=== PATIENT | female | born 1955 | race Caucasian/White ===

== ENCOUNTER 2020-12-01 10:14 | Outpatient (REF) | payer MEDICARE, OTHER, SELFPAY ==
[2020-12-01 12:46] LABS: MANUAL DIFF FLAG NO
[2020-12-01 12:51] LABS: Basophils Percent Auto 0.6 % (0-2); Eosinophils Absolute Auto 0.1 X10*3/uL (0.0-0.4); Eosinophils Percent Auto 2.1 % (0-4); Hematocrit 42.5 % (37-47); Hemoglobin 13.4 g/dl (12.0-16.0); Imm Gran Abs Auto 0.02 X10*3/uL (0.00-0.03); Imm Gran Pct Auto 0.4 % (0.0-0.4); Lymphocytes Percent Auto 20.3 % (20-40); Mean Corpuscular HGB Conc 31.5 g/dl (31.0-35.0); Mean Corpuscular Hemoglobin 29.5 pg (27.0-33.0); Mean Corpuscular Volume 93.4 fL (80-98); Mean Platelet Volume 8.9 fL (9.4-12.3); Monocytes Absolute Auto 0.3 X10*3/uL (0.1-1.2); Monocytes Percent Auto 5.5 % (2-11); Neutrophils Absolute Auto 3.3 X10*3/uL (2.0-8.3); Neutrophils Percent Auto 71.1 % (45-73); Platelet Count 257 X10*3/uL (160-400); Red Blood Count 4.55 X10*6/uL (4.20-5.50); Red Cell Distribution Width 13.2 % (11.0-16.0); White Blood Count 4.7 X10*3/uL (4.8-10.8)
[2020-12-01 12:59] LABS: Estimated Average Glucose 120 mg/dL; Hemoglobin A1c % 5.8 %
[2020-12-01 13:15] LABS: Alanine Aminotransferase 20 U/L (0-31); Albumin Level 4.5 g/dL (3.5-5.0); Alkaline Phosphatase 85 U/L (39-117); Anion Gap 13 (12-20); Aspartate Amino Transferase 25 U/L (5-31); Bilirubin Total 0.6 mg/dL (0.0-1.0); Blood Urea Nitrogen 14 mg/dL (9-16); C Reactive Protein 0.22 mg/dL (< or = 0.50); Calcium 9.4 mg/dL (8.4-10.2); Carbon Dioxide 27 mmol/L (22-29); Chloride 110 mmol/L (96-108); Cholesterol 175 mg/dL; Estimated Glomerular Filt Rate > 60; Glucose Fasting 87 mg/dL (60-99); HDL Cholesterol 51 mg/dL; LDL Cholesterol Calculated 102 mg/dl; Potassium 4.1 mmol/L (3.3-5.1); Sodium 146 mmol/L (135-145); Total Protein 6.6 g/dL (6.5-8.0); Triglycerides 111 mg/dL
[2020-12-01 13:32] LABS: Erythrocyte Sedimentation Rate 8 MM/HR (0-20)
[2020-12-01 13:36] LABS: Free T4 (Free Thyroxine) 0.89 ng/dL (0.71-1.85); Thyroid Stimulating Hormone 0.76 uIU/mL (0.32-4.0)
[2020-12-01 14:03] LABS: Folate 9.7 ng/mL (> or = 4.0); Vitamin B12 168 pg/mL (200-900)
[2020-12-02 21:12] LABS: Lyme Abs Screen <0.90 index
== END 2020-12-01 10:15 | disposition home or self-care (01) ==
LOC: HO.MANLDS 10:14
PROVIDERS: Visit Provider Physician Assistant
DX: E78.00 Pure hypercholesterolemia, unspecified (principal); R41.3 Other amnesia
CPT/HCPCS: 36415; 80053; 80061; 82607; 82746; 83036; 84439; 84443; 85025; 85652; 86140; 86617; 86618

== ENCOUNTER 2021-08-04 12:39 | Outpatient (REF) | payer MEDICARE, OTHER, SELFPAY ==
--- NOTE | ~2021-08-04 | US_ITS ---
EXAMINATION: US LOWER EXTREMITY VENOUS (REFLUX EXAM), BILATERAL CLINICAL INDICATION: This is a 65-year-old female with venous insufficiency and varicose veins. COMPARISON: None. TECHNIQUE: Color flow triplex imaging and compression Doppler was performed to evaluate both the deep and the superficial systems bilaterally. To evaluate the superficial system, the examination was performed in the upright position. Color-flow Doppler ultrasound and compression ultrasound were utilized. In addition, maneuvers were utilized to demonstrate reflux. FINDINGS: 1. DEEP VENOUS ULTRASOUND OF THE RIGHT LOWER EXTREMITY: Common Femoral Vein: Compressible, normal respiratory variation and augmented flow. Femoral vein: Compressible, normal color flow and augmentation. Popliteal Vein: Compressible, normal augmentation. Deep Reflux: There is no evidence of reflux in the deep system in either the common femoral vein or the popliteal vein. There is no evidence of a Shaw's cyst. 2. SUPERFICIAL ULTRASOUND WITH DOPPLER OF RIGHT LOWER EXTREMITY: GREAT SAPHENOUS VEIN: Saphenofemoral Junction: 0.7 cm. The reflux time is 1612 ms. Mid Thigh: 0.5 cm. The reflux time is 3272 ms. Above Knee: 0.4 cm. The reflux time is 3184 ms. Below Knee: 0.3 cm. The reflux time is 3316 ms. Mid Calf: 0.4 cm. There is no reflux. Ankle: 0.4 cm. The reflux time is 3356 ms. GSV REFLUX: No evidence of reflux. DUPLICATED GREAT SAPHENOUS VEIN: None. SMALL SAPHENOUS VEIN: Proximal: 0.4 cm Distal: 0.4 cm SSV REFLUX: No evidence of reflux. VEIN OF GIACOMINI: None Imaged. 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 There is a 0.1 cm proximal calf gas plant worker without reflux. VARICOSITIES: There is a 0.3 cm proximal thigh varicose veins without reflux. There are 0.7 cm distal thigh varicose veins with greater than 3 seconds of reflux. This extends to the knee measures 0.3 cm at the knee. 3. DEEP VENOUS ULTRASOUND OF THE LEFT LOWER EXTREMITY: Common Femoral Vein: Compressible, normal respiratory variation and augmented flow. Femoral Vein: Compressible, normal color flow and augmentation. Popliteal Vein: Compressible, normal augmentation. Deep Reflux: There is no evidence of reflux in the deep system in either the common femoral vein or the popliteal vein. There is no evidence of a Shaw's cyst. 4. SUPERFICIAL ULTRASOUND WITH DOPPLER OF LEFT LOWER EXTREMITY: GREAT SAPHENOUS VEIN: Saphenofemoral Junction: 0.9 cm The great saphenous vein below this level has been removed secondary to previous surgery. GSV REFLUX: No evidence of reflux. DUPLICATED GREAT SAPHENOUS VEIN: There is a 0.3 cm duplicated left lateral great saphenous vein without reflux. SMALL SAPHENOUS VEIN: Proximal: 0.3 cm. There is no reflux. Distal: 0.3 cm. The reflux time is 3192 ms. SSV REFLUX: There is distal calf reflux. VEIN OF GIACOMINI: None Imaged. PERFORATORS: None Imaged VARICOSITIES: There are 0.4 cm proximal calf varicose veins with greater than 3 seconds of reflux. US/US venous duplex LE BI IMPRESSION: 1. There is a patent right great saphenous vein with reflux at the saphenofemoral junction. 2. There is a patent right small saphenous vein without reflux. 3. There are varicose veins as described with greater than 3 seconds of reflux. 4. The patient status post stripping of the left great saphenous vein and there is no reflux. 5. There is a patent left small saphenous vein with distal calf reflux greater than 3 seconds. 6. There are 0.4 cm proximal calf varicose veins with greater than 3 seconds of reflux.
== END 2021-08-04 12:40 | disposition home or self-care (01) ==
LOC: HO.US 12:39
PROVIDERS: Visit Provider Physician Assistant
DX: I83.11 Varicose veins of right lower extremity with inflammation (principal)
CPT/HCPCS: 93970

== ENCOUNTER → 2021-10-05 09:19 | Outpatient (BNVA) | payer MEDICARE, OTHER, SELFPAY | PROVIDERS: PCP Internal Medicine; Visit Provider Surgery Vascular Surgery | DX: I83.11 Varicose veins of right lower extremity with inflammation (principal) | CPT/HCPCS: 99202 ==

== ENCOUNTER 2021-11-02 07:37 | Outpatient (REF) | payer MEDICARE, OTHER, SELFPAY ==
--- NOTE | ~2021-11-02 | XR_ITS ---
EXAMINATION: XR HIP, RIGHT CLINICAL INFORMATION: Pain. COMPARISON: None TECHNIQUE: AP and frog-leg lateral views of the right hip. FINDINGS: Bony alignment and mineralization are normal. The right acetabular joint space is well-maintained. There is a small peripheral osteophyte of the right acetabular roof. The right femoral head appears smooth. No fracture or dislocation is seen. The soft tissue planes are unremarkable. XR/XR hip RT min 2V IMPRESSION: There is very mild osteoarthritic change of the right hip. No fracture or dislocation is seen.
--- NOTE | ~2021-11-02 | XR_ITS ---
EXAMINATION: XR LUMBOSACRAL SPINE CLINICAL INFORMATION: Radiculopathy symptoms. COMPARISON: Radiographs dated 10/26/2007. TECHNIQUE: AP and lateral views of the lumbar spine and lateral view of the lumbosacral junction. FINDINGS: There is bony demineralization. Vertebral body heights and alignment are normal. There is mild to moderate disc space narrowing at L3-L4 and L4-L5. There is moderate disc space narrowing at L5-S1. No acute fracture or spondylolisthesis is seen. There is multi-level lumbar spondylosis. The posterior elements are intact. There are aortoiliac atherosclerotic calcifications. XR/XR lumbar spine 2-3V IMPRESSION: 1. There is moderate degenerative disc disease at L5-S1, and mild to moderate degenerative disc disease seen at L3-L4 and L4-L5. 2. No acute fracture or spondylolisthesis is seen. 3. There is multi-level lumbar spondylosis.
== END 2021-11-02 07:38 | disposition home or self-care (01) ==
LOC: HO.XRAY 07:37
PROVIDERS: PCP Internal Medicine; Visit Provider Physician Assistant
DX: M25.551 Pain in right hip (principal); M54.59 Other low back pain
CPT/HCPCS: 72100; 73502

== ENCOUNTER → 2022-01-04 08:45 | Outpatient (BNVA) | payer MEDICARE, OTHER, SELFPAY | PROVIDERS: PCP Internal Medicine; Visit Provider Surgery Vascular Surgery | DX: I83.11 Varicose veins of right lower extremity with inflammation (principal) | CPT/HCPCS: 99212 ==

== ENCOUNTER 2022-07-25 10:11 | Outpatient (REF) | payer MEDICARE, OTHER, SELFPAY ==
[2022-07-25 14:50] LABS: Cholesterol 161 mg/dL; HDL Cholesterol 54 mg/dL; LDL Cholesterol Calculated 92 mg/dl; Triglycerides 76 mg/dL
== END 2022-07-25 10:12 | disposition home or self-care (01) ==
LOC: HO.MANLDS 10:11
PROVIDERS: Visit Provider Physician Assistant
DX: E78.5 Hyperlipidemia, unspecified (principal)
CPT/HCPCS: 36415; 80061

== ENCOUNTER 2022-09-30 08:20 | Outpatient (REF) | payer MEDICARE, OTHER, SELFPAY ==
--- NOTE | ~2022-09-30 | MR_ITS ---
EXAMINATION: MR BRAIN WITHOUT AND WITH CONTRAST CLINICAL INFORMATION: Acoustic neuroma. COMPARISON: None available. TECHNIQUE: Multiplanar, multisequence imaging of the brain was performed before and after the intravenous administration of 6 mL of Gadavist. FINDINGS: The inner ear structures including the cochlea, vestibules, and semicircular canals exhibit preserved CSF signal intensity with no pathologic enhancement. The vestibular aqueducts are not enlarged. Cranial nerves VII and VIII complexes are normal in morphology. No enhancing cerebellopontine angle/retrocochlear lesion. There is no intracranial mass or abnormal intracranial enhancement. There is no acute infarction. There is no intracranial hemorrhage or extra axial collection. The ventricles, sulci, and basilar cisterns are normal in size and configuration. Mild scattered foci of T2/FLAIR hyperintensity are seen within the bilateral cerebral white matter. The extracranial structures appear normal. MR/MR head/brain wo/w con IMPRESSION: 1. No vestibular schwannoma or retrocochlear lesion. 2. No mass lesion, acute infarction, or abnormal intracranial enhancement.
== END 2022-09-30 08:21 | disposition home or self-care (01) ==
LOC: HO.MRI 08:20
PROVIDERS: PCP Physician Assistant; Visit Provider Otolaryngology
DX: D33.3 Benign neoplasm of cranial nerves (principal)
CPT/HCPCS: 70553; A9585

== ENCOUNTER 2023-12-05 07:00 | Outpatient (REF) | payer MEDICARE, OTHER, SELFPAY ==
[2023-12-05 07:21] LABS: MANUAL DIFF FLAG NO
[2023-12-05 08:15] LABS: Eosinophils Absolute Auto 0.1 X10*3/uL (0.0-0.4); Eosinophils Percent Auto 3.7 % (0-4); Hematocrit 41.5 % (37.0-47.0); Hemoglobin 13.4 g/dl (12.0-16.0); Imm Gran Abs Auto 0.01 X10*3/uL (0.00-0.03); Imm Gran Pct Auto 0.3 % (0.0-0.4); Lymphocytes Absolute Auto 1.2 X10*3/uL (1.2-4.9); Lymphocytes Percent Auto 32.2 % (20-40); Mean Corpuscular HGB Conc 32.3 g/dl (31.0-35.0); Mean Corpuscular Hemoglobin 30.7 pg (27.0-33.0); Mean Corpuscular Volume 95.2 fL (80.0-98.0); Mean Platelet Volume 8.7 fL (9.4-12.3); Monocytes Absolute Auto 0.3 X10*3/uL (0.1-1.2); Monocytes Percent Auto 7.9 % (2-11); Neutrophils Absolute Auto 2.1 x10*3/uL (2.0-8.3); Neutrophils Percent Auto 54.9 % (45-73); Platelet Count 219 X10*3/uL (160-400); Red Blood Count 4.36 X10*6/uL (4.20-5.50); Red Cell Distribution Width 12.8 % (11.0-16.0); White Blood Count 3.8 X10*3/uL (4.8-10.8)
[2023-12-05 08:50] LABS: Erythrocyte Sedimentation Rate 8 MM/HR (0-20)
[2023-12-05 09:07] LABS: Rheumatoid Factor < 13.0 IU/mL (<15.0)
[2023-12-05 09:22] LABS: C Reactive Protein 0.19 mg/dL (< or = 0.50); Iron 78 mcg/dL (30-160); Percent Iron Saturation 26 % (15-50); Total Iron Binding Capacity 298 mcg/dL (228-428); Unsaturated Iron Binding 220 ug/dL
[2023-12-05 09:24] LABS: Free T4 (Free Thyroxine) 0.79 ng/dL (0.71-1.85); Thyroid Stimulating Hormone 1.32 uIU/mL (0.32-4.0)
[2023-12-05 09:33] LABS: Folate 8.9 ng/mL (> or = 4.0); Vitamin B12 190 pg/mL (200-900)
[2023-12-07 13:59] LABS: Anti Nuclear Antibody Screen NEGATIVE (NEGATIVE)
== END 2023-12-05 07:01 | disposition home or self-care (01) ==
LOC: HO.LAB 07:00
PROVIDERS: PCP Internal Medicine; Visit Provider Physician Assistant
DX: R41.3 Other amnesia (principal); I73.00 Raynaud's syndrome without gangrene
CPT/HCPCS: 36415; 82607; 82746; 83540; 84439; 84443; 85025; 85652; 86038; 86140; 86431

== ENCOUNTER 2024-01-05 08:42 | Outpatient (REF) | payer MEDICARE, OTHER, SELFPAY ==
--- NOTE | ~2024-01-05 | MR_ITS ---
MRI OF THE BRAIN WITHOUT IV CONTRAST INDICATION: Memory loss with question vascular dementia. COMPARISON: Brain MRI September 30, 2022. TECHNIQUE: Multiplanar multisequence MR imaging of the brain was obtained without IV contrast. FINDINGS: There is no hydrocephalus, extra-axial surface collection, or herniation. There is global cerebral volume loss and moderate chronic microangiopathy. 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 The major flow voids at the skull base are preserved. There is no acute infarct on diffusion-weighted imaging. There is no intracranial hemorrhage on the gradient recalled echo acquisition. The midline structures are normal. The cerebellar tonsils are normally positioned. The cerebellum and brainstem are normal. The craniocervical junction is normal. Osseous marrow signal intensity is homogenous. The visualized soft tissues are unremarkable. MR/MR head/brain wo con IMPRESSION: * No acute intracranial findings. * There is global cerebral volume loss and moderate chronic microangiopathy. 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 Electronically signed by: Bartolo Nielsen MD 02/07/2024 04:09 PM EDT
== END 2024-01-05 08:43 | disposition home or self-care (01) ==
LOC: HO.MRI 08:42
PROVIDERS: PCP Internal Medicine; Visit Provider Physician Assistant
DX: R41.3 Other amnesia (principal)
CPT/HCPCS: 70551

== ENCOUNTER 2025-05-01 07:16 | Outpatient (REF) | payer MEDICARE, OTHER, SELFPAY ==
--- NOTE | ~2025-05-01 | XR_ITS ---
EXAMINATION: XR BILATERAL HIPS WITH AP PELVIS CLINICAL INFORMATION: PAIN COMPARISON: X-ray 11/02/2021 TECHNIQUE: AP view of the pelvis and 2 views of each hip were obtained. FINDINGS: Right hip: No visible acute fracture dislocation or suspicious bony lesion. Hip joint space is maintained. Mild acetabular roof sclerosis and lateral osteophyte Left hip: No visible acute fracture, dislocation or suspicious bony lesion. Lateral acetabular cysts and acetabular roof sclerosis. No visible.. SI joints and symphysis pubis intact. No acute pelvic fractures identified. Spondylosis in the visualized lower lumbar spine. Surgical projects over the left ischium. XR/XR hip BI w [id number] IMPRESSION: Mild bilateral hip osteoarthritis. Electronically signed by: Richard Beal MD 05/01/2025 03:00 PM [facility]
--- OUTSIDE RECORDS SUMMARY | 2025-05-01 07:19 | XMS_ITS | Continuity of Care Document ---
Author Organization [facility], [facility] Address [address] [place] [address] [place] [address] Assessment No assessment recorded. Plan of Treatment Reminders Order Date Submit Date Provider Last Modified By Organization Details Last Modified Time Details Appointments None recorded. Lab None recorded. Referral None recorded. Procedures None recorded. Surgeries None recorded. Imaging XR, hip + pelvis, bilateral, 2 view - bilateral hip; ? L hip fracture 2024 025 [facility] Central Scheduling, [address] [place] [address], [address], 5 15:35:46 Medication Orders None recorded. Patient TargetsNo targets recorded. Patient InstructionsNo instructions recorded. Reason for Referral None Reported. 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 2017 Not Available [facility] 1 10:24:15 Psoriasis 1670095 Active 2017 Not Available [facility] 1 10:24:15 Vertigo 625110045 Active 2017 Not Available [facility] 1 10:24:15 Gastric reflux 397658431 Active 2017 Not Available [facility] 1 10:24:15 Periphera l venous insuffici ency 13014781 Active 2021 KARISHMA GAGE [address], [place], [address], [facility] 2 10:03:11 Pain of right lower leg 489119653424 108 Active 2021 KARISHMA GAGE [address] [place], [address], [facility] 2 16:39:32 Venous insuffici ency of lower limb 624944480 Active 2021 KARISHMA GAGE [address] [place], [address], [facility] 2 16:39:39 Pain of right hip joint 403023104652 102 Active 2021 KARISHMA GAGE [address] [place], [address], [facility] 2 16:40:33 Low back pain 218851761 Active 2021 KARISHMA GAGE [address] [place] [address], [address], [facility] 2 10:44:21 Otalgia of right ear 8272593875 Active 2021 KARISHMA GAGE [address] [place] [address], [address], [facility] 2 10:11:09 Skin lesion 51681467 Active 2021 KARISHMA GAGE [address] [place] [address], [address], [facility] 2 10:15:03 Constipat ion 88496358 Active 2021 KARISHMA GAGE [address] [place], [address], [facility] 2 10:19:17 Hyperlipi demia 19864186 Active 2022 KARISHMA GAGE [address] [place] [address], [address], [facility] 3 11:58:15 Eczema 33162718 Active 2022 KARISHMA GAGE [address] [place], [address], [facility] 3 14:26:11 Seborrhei c dermatiti s of scalp 838712635 Active 2022 KARISHMA GAGE [address] [place] [address], [address], [facility] 3 09:10:14 Memory impairmen t 603741903 Active 2023 KARISHMA GAGE [address] [place] [address], [address], [facility] 4 13:45:49 Raynaud's phenomeno n 311093161 Active 2023 KARISHMA GAGE [address] [place] [address], [address], [facility] 4 13:46:29 Bilateral carpal tunnel syndrome 585425208746 32310 Active 2023 KARISHMA GAGE [address] [place] [address], [address], [facility] 5 10:06:24 Osteoarth ritis of joint of hand 26533291 Active 2023 KARISHMA GAGE [address] [place] [address], [address], [facility] 4 10:51:35 Varicose veins of bilateral lower limbs 026085081435 09313 Active 2023 KARISHMA GAGE [address] [place] [address], [address], [facility] 4 10:51:49 Bilateral spider veins of lower limbs 550970737823 75598 Active 2023 KARISHMA GAGE [address] [place] [address], [address], [facility] 4 10:51:58 Osteoarth ritis of joint of hand 64142850 Active 2023 KARISHMA GAGE [address] [place] [address], [address], [facility] 4 10:52:10 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 KARISHMA GAGE [address] [place] [address], [address], [facility] 4 10:05:32 Seborrhei c keratosis 935225778 Active 2024 KARISHMA GAGE [address] [place] [address], [address], [facility] 5 09:33:15 Vascular dementia 627273991 Active 2024 KARISHMA GAGE [address] [place] [address], [address], [facility] 5 10:00:38 Bilateral inflammat ion of hands Active 2024 KARISHMA GAGE [address] [place] [address], [address], [facility] 5 10:06:54 Ganglion of hand 429871124 Active 2024 KARISHMA GAGE [address] [place] [address], [address], [facility] 5 10:07:03 Thromboph lebitis of superfici al vein of right lower limb 862063376458 29488 Active 2024 KARISHMA GAGE [address] [place] [address], [address], [facility] 5 14:26:21 Pain of hip region 45358784 Active 2024 KARISHMA GAGE [address] [place] [address], [address], [facility] 5 13:49:55 Problem Notes None recorded. Procedures Surgical History Date Name Laterality Status Provider Name and Address Organization Details Recorded Time 07/28/19 22 Cerumen Removal completed KARISHMA GAGE [address] [place] [address], [address], [facility] 07/28/2021 09:39:06 06/19/19 08 Thyroid Surgery completed Luann Silver NP, [address] [place], [address], [facility] 03/06/2018 13:59:10 Partial Hysterectomy completed Luann Silver NP, [address] [place], [address], [facility] 03/06/2018 13:58:37 Imaging Results None recorded. Procedure Notes None recorded. Medical Equipment None Reported. Allergies No known drug allergies Medications Name Sig Start Date Stop Date Status Note LastModified by Organization Details LastModified Time Prescript ion - Prior Authoriza tion Request 12/01 completed Approval Diclofen ac Sodium Gel Not Available Not Available Not Available atorvasta tin 40 mg tablet TAKE 1 TABLET BY MOUTH EVERY DAY 11/19 completed Not Available Not Available Not Available benzonata te 200 mg capsule Take 1 capsule 3 times a day by oral route. 03/07 completed Not Available Not Available Not Available ranitidin e 300 mg tablet TAKE 1 TABLET BY MOUTH TWICE A DAY 12/29 completed Not Available Not Available Not Available meloxicam 15 mg tablet TAKE 1 TABLET BY MOUTH EVERY DAY NEEDED FOR 14 DAYS 04/30 completed Not Available Not Available Not Available prednison e 20 mg tablet 3 tabs X 3 days, 2 tabs X 3 days, 1 tab X 3 days 10/08 completed Not Available Not Available Not Available clobetaso l 0.05 % topical cream APPLY THIN COAT TO AFFECTED AREA TWICE A DAY 07/16 completed Not Available Not Available Not Available aspirin 81 mg tablet,de layed release TAKE 1 TABLET BY MOUTH EVERY DAY DIRECTED active Not Available Not Available No t Available meclizine 25 mg tablet TAKE 1 TABLET BY MOUTH THREE TIMES A DAY NEEDED FOR 30 DAYS 04/30 completed Not Available Not Available Not Available cephalexi n 500 mg capsule Take 1 capsule every 8 hours by oral route for 10 days. 04/25 completed Not Available Not Available Not Available methylpre dnisolone 4 mg tablets in a dose pack TAKE 6 TABLETS ON DAY 1 DIRECTED ON PACKAGE AND DECREASE BY 1 TAB EACH DAY FOR A TOTAL OF 6 DAYS 04/30 completed Not Available Not Available Not Available clobetaso l 0.05 % scalp solution APPLY TO THE AFFECTED SCALP AREA BY TOPICAL ROUTE 2 TIMES PER DAY IN THE MORNING AND EVENING active Not Available Not Available No t Available neomycin- polymyxin -hydrocor t 3.5 mg-10,000 unit/mL-1 % ear drops,chichi p INSTILL 4 DROPS INTO AFFECTED EAR(S) 3 TIMES A DAY 08/20 completed Not Available Not Available Not Available cyclobenz aprine 5 mg tablet Take 1 tablet twice a day by oral route as needed. 10/08 completed Not Available Not Available Not Available Zantac 03/07 completed Not Available Not Available Not Available 12 Hour Decongest ant ER 120 mg tablet,ex tended release TAKE 1 TABLET BY MOUTH EVERY 12 HOURS FOR 14 DAYS 09/13 completed Not Available Not Available Not Available diclofena c 1 % topical gel apply 2 g 1% gel qid prn 2024 active Not Available Not Available Not Avai lable Vitals Date Recorded Body height Body mass index (BMI) Body weight Oxygen saturation Oxygen saturation in Arterial blood by Pulse oximetry Heart rate Systolic And Diastolic Provider Name and Address Organization Details Last Updated DateTime 5 170.18 cm 25.7 kg/m2 04230.1 5 g 96 % 96 % 70 /min 134/70 mm[Hg] [facility] 5 13:42:13 Social History Question Answer Notes LastModified by Organizat ion Details LastModified Time Tobacco Smoking Status Former Smoker Not Available [facility] 04/21/2020 03:36:24 What Was The Date Of Your Most Recent Tobacco Screening? 04/30/2025 [email or web address] Information not available 04/30/2025 Sex: Unknown Functional Status Question Answer Note LastModified by Organization D etails LastModified Time Do you or have you ever used any other forms of tobacco or nicotine? No [email or web address] Information not available 10/27/2021 Mental Status None recorded. Family History Nothing Reported. Medical History No medical history recorded. Gynecological HistoryNo gynecological history recorded. Obstetrics History GPAL:G 0 P 0 0 0 0 Immunizations Vaccine Type Date Status Note Provider Nam e and Address Organization Details Recorded Time COVID-19, mRNA, LNP-S, PF, 30 mcg/0.3 mL dose 1 completed KARISHMA GAGE [address] [place], [address], [facility] 06/03/2021 18:21:34 Influenza, split virus, quadrivalent, preservative 1 completed KARISHMA GAGE [address] [place], [address], [facility] 07/28/2021 09:13:49 Influenza, split virus, quadrivalent, preservative 9 completed Not Available [facility] 07/06/2019 02:46:30 influenza, unspecified formulation 4 [facility] 08:52:29 Influenza, split virus, quadrivalent, preservative 8 completed Not Available [facility] 07/06/2019 02:46:31 COVID-19, mRNA, LNP-S, PF, 30 mcg/0.3 mL dose 1 completed Dee aldana [facility] 11/24/2020 09:40:46 COVID-19, mRNA, LNP-S, PF, 30 mcg/0.3 mL dose 1 completed Dee aldana [facility] 11/24/2020 09:40:54 Past Encounters Encounter ID Performer Location Encounter Start Date Encounter Closed Date Diagnosis/Indication Diagnosis SNOMED-CT Code Diagnosis ICD10 Code Diagnosis IMO Codes Diagnosis Note [id number] Henrique Donohue [facility] Internal [facility] [address] [address] 04/08/2025 14:06:01 04/09/2025 09:39:24 Thrombophlebitis of superficial vein of right lower limb 4883635324 1208947 I80.01 [id number] Henrique Donohue [facility] [address] [facility] [facility] [address] [address] 04/30/2025 13:29:00 04/30/2025 15:35:46 Depression screening 744968183 Z13.31 SCREENING NEGATIVE Pain of hip region 73726 002 M25.552 901031 Ganglion of hand 5006468 07 M67.449 0465648154 L handresolv ed Thrombophl ebitis of superficial vein of right lower limb 6031606439 2680058 I80.01 02588322 Health Concerns Section Related Observation LastModified by Organization Detai ls LastModified Time None Recorded Concern Status LastModified by Organization Details LastModified Time None Recorded Payers Encounter Date Sequence Insurance Name Policy Number Policy Nur Covered Member ID Nur Member ID Guarantor Name 04/30/2025 2 [facility] [id number] 01 Alyssa Stacy [id number] Alyssa Stacy 04/30/2025 1 [place] Alyssa Stacy [id number] Alyssa Stacy Notes Date Note Type Note Provider Name a nd Address Organization Details Recorded Time 5 text/html ROS as noted in the HPI c/o L hip pain the patient reports she was trying to make her bed, tripped and fell on her hip (L)no head strikethe patient reports that she just gets a lot of pain in that area and has been giving out on herthis happened about two weeks agohas had three to falls since patient has memory problems which we are aware ofso she thinks she fell out three times, could be more, but at least three, all because her L hip gave out no head injury sig pain with ext rotation and notable limp and weakness on L compared to R recommend XR which pt was hesitant to do, but she agreesdiscussed possibility of hip fx KARISHMA GAGE [address], [place], [address], [place] [facility] 04/30/2025 15:22:11 OBGyn Episode No OBEpisode recorded.
--- OUTSIDE RECORDS SUMMARY | 2025-05-01 07:19 | XMS_ITS | Patient Health Record ---
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 Role Phone Blaire Bowden Primary Care Provider Lobito love Tala Jaine Unavailable [phone] Allergies No Known Allergies Reason For Referral No Information Medications Medication SIG (Take, Route, Frequency, Duration) Notes Start Date End Date Status Aspir-81 PRN Active Atorvastatin Calcium 40 MG 1 tablet Orally Once a day; Duration: 30 day(s) Not-Taking Nitro-Bid 2 % as directed Transder mal BID; Duration: 14 days 07/15/2013 Not-Takin g Meclizine HCl 25mg N ot-Taking Social History Tobacco Use: Social History Observation Description Date Details (start date - stop date) Never Smoker NA - NA Tobacco use other than smoking: Question Answer Notes Are you an other tobacco user? No Tobacco Control (Standard) Question Answer Notes Tobacco use: Nonsmoker Additional Findings: Tobacco non-user Current no nsmoker AUDIT-C (Standard) Question Answer Notes Did you have a drink containing alcohol in the p ast year? No Points 0 Interpretation Negative Problems Problem Type SNOMED Code ICD Code Onset Dates Problem Status W/U Status Risk Notes Problem Plantar wart (69664926) Plantar wart (B07.0) Active confirmed Vital Signs Blood pressure diastolic 60 mm Hg 12/30/2024 Height 5ft 8in in 12/30/2024 Blood pressure systolic 115 mm Hg 12/30/2024 Weight 147 lbs 12/30/2024 BMI 22.35 kg/m2 12/30/2024 Procedures Procedure Date Ordered Date Performed Result Body Sit e 55518-Bysz Destruction, 1-14 12/30/2024 N/A Encounters Encounter Location Date Provider Diagnosis [facility] [place] [address] [place] [address] 12/30/2024 Montserrat Black Right foot pain M79.671 and Plantar wart B07.0 Assessments Encounter Date Diagnosis (ICD Code) Assessment Notes Treatment Notes Treatment Clinical Notes Section Notes 12/30/2024 Right foot pain (ICD-10 - M79.671) 12/30/2024 Plantar wart (ICD-10 - B07.0) Plan Of Treatment Pending Test Test Name Order Date X ray : Foot, left 3V 08/02/2012 X ray : Foot, right 3V 08/02/2012 [id number] Destruction, 1-12/30/2024 Insurance Providers Payer Name Payer Address Payer Phone Subscriber Number Group Number Insured Name Patient Relationship to Insured Coverage Start Date Coverage End Date Medicare [employer] [address] [place] [address] [id number] Alyssa Stacy Self - patient is the insured [facility] [address] [place] [address] [phone] [id number] Alyssa Stacy Self - patient is the insured Medical (General) History Medical History History ICD Code psoriasis/eczema thyroid disorder Arthritis Valves in legs dont work- pt wears compr ession stockings all the time Other hammer toe(s) (acquired), left esme t M20.42 Surgical History Surgery Date(Month/Year) thyroidectomy
--- OUTSIDE RECORDS SUMMARY | 2025-05-01 07:20 | XMS_ITS | Clinical Summary ---
Author Organization [facility] Address [address] [place] [address] Phone Care Team Providers Care Communications Specialist Name Role Phone Blaire Odonnell Primary Care Provider Social History Tobacco Use Types Packs/Day Years Used Date Smoking Tobacco: Never Assessed Education Answer Date Recorded Are you interested in more education? Not on shahid e 10/15/2022 Are you concerned about learning? Not on file 10/15/2022 No 10/15/2022 No 10/15/2022 Digital Access Answer Date Recorded No 11/15/2022 No 11/15/2022 Reliable internet access at home? Not on file 11/15/2022 Device with a working camera? Not on file Comments Unknown Sex and Gender Information Value Date Recorded Sex Assigned at Not on file Legal Sex Unknown 07/28/2021 9:55 AM EST Gender Identity Not on file Sexual Orientation Not on file Plan of Treatment Not on file Medical Devices Not on file Insurance MEDICARE PART A & B [facility] MEDICARE SUPPLEMENT Member Subscriber Plan / Payer (Ef fective 2018-Present) Name:Alyssa Stacy Relation to Subscriber:Self Name:Alyssa Stacy Payer ID:Not on file Type:Indemnity Address: [place] [id number] MEDICARE PART A & B MEDICARE SUPPLEMENT MEDICARE PART A & B MEDICARE SUPPLEMENT MEDICARE PART A & B MEDICARE SUPPLEMENT MEDICARE PART A & B Member Subscriber Plan / Payer (Ef fective 2018-) Name:Alyssa Stacy Member ID:[id number] Relation to Subscriber:Self Name:Alyssa Stacy Subscriber ID:[id number] Payer ID:[id number] Group ID:Not on file Type:Medicare Address: [employer] [address] MEDICARE SUPPLEMENT MEDICARE PART A & B MEDICARE SUPPLEMENT MEDICARE PART A & B Member Subscriber Plan / Payer (Ef fective 2018-Present) Name:Alyssa Stacy Member ID:[id number] Relation to Subscriber:Self Name:Alyssa Stacy Subscriber ID:[id number] Payer ID:[id number] Group ID:Not on file Type:Medicare Address: [employer] [address] MEDICARE SUPPLEMENT MEDICARE PART A & B MEDICARE SUPPLEMENT MEDICARE PART A & B [facility] MEDICARE SUPPLEMENT Member Subscriber Plan / Payer (Ef fective 2018-Present) Name:Alyssa Stacy Relation to Subscriber:Self Name:Alyssa Stacy Payer ID:Not on file Type:Indemnity Address: [place] [phone] Care Teams Communications Specialist Relationship Specialty Start Date End Date Blaire Odonnell PA [address] [facility] [place] [address] PCP - General 07/28/21 Additional Source Comments The information contained in this document represents components of the legal health record. It is not the complete legal health record.[facility]
--- OUTSIDE RECORDS SUMMARY | 2025-05-01 07:20 | XMS_ITS | Data Portability ---
Author Organization [facility], Telehealth Patient Home Address [address] [place] [address] Assessment Encounter Date Assessment Date Assessment LastModified by Organization Details LastModified Time 02/13/2024 02/13/2024 Patient agreed and verbally consents to this audio and video Telehealth appt via a secure platform [email or web address] Not available 02/13/2024 10:06:18 Plan of Treatment Reminders Order Date Submit Date Provider Last Modified By Organization Details Last Modified Time Details Appointments None recorded. Lab None recorded. Referral None recorded. Procedures None recorded. Surgeries None recorded. Imaging XR, hip + pelvis, bilateral, 2 view - bilateral hip; ? L hip fracture 2024 025 [email or web address] [facility] Central Scheduling, [address] [place], [address], 15:35:46 Medication Orders cephalexin 500 mg capsule 2024 025 [facility]acy #[id number], [address] [place], [address], 5 05:01:12 Medrol ([place]ryn) 4 mg tablets in a dose pack 2024 025 [facility] #[id number], [address] [place], [address], 5 13:55:47 aspirin 81 mg tablet,deon yed release 2024 025 [facility] #[id number], [address] [place], [address], 5 14:29:23 meclizine 25 mg tablet 2024 025 [id number] [address] [place], [address], 5 13:55:51 clobetasol 0.05 % scalp solution 2024 025 [id number] [address] [place], [address], 5 09:36:01 diclofenac 1 % topical gel 2024 025 [id number] [address] [place], [address], 5 09:32:13 meloxicam 15 mg tablet 2024 025 [id number] [address] [place], [address], 5 13:39:38 Patient TargetsNo targets recorded. Patient InstructionsNo instructions recorded. Reason for Referral None Reported. Results Created Date Observation Date Name Description Value Unit Range Abnormal Flag Note LastModifiedBy Organization Detail LastModifiedTime 02/07/20 24 01/05/2024 MRI, brain , w/o contr ast No observ ation record ed. [email or web address] [facility] (Medical Records) [address] [place], [address], 02/09/2024 09:04:20 Result Notes None recorded. Problems Name Problem SNOMED Code Status Onset Date Resolution Date Notes Provider Name and Address Organization Details Recorded Time Hyperchol esterolem ia 60220205 Active 2017 Not Available [facility] 10:24:15 Obsessive -compulsi ve disorder 789661393 Active 2017 Not Available [facility] 10:24:15 Psoriasis 0611436 Active 2017 Not Available [facility] 12/16/202 1 10:24:15 Vertigo 107575144 Active 2017 Not Available [facility] 1 10:24:15 Gastric reflux 280250742 Active 2017 Not Available [facility] 1 10:24:15 Periphera l venous insuffici ency 00817169 Active 2021 KARISHMA GAGE [address] [place], [address], [facility] 2 10:03:11 Pain of right lower leg 421105055379 108 Active 2021 KARISHMA GAGE [address] [place], [address], [facility] 2 16:39:32 Venous insuffici ency of lower limb 402772148 Active 2021 KARISHMA GAGE [address] [place], [address], [facility] 2 16:39:39 Pain of right hip joint 034929358532 102 Active 2021 KARISHMA GAGE [address] [place], [address], [facility] 2 16:40:33 Low back pain 377120243 Active 2021 KARISHMA GAGE [address] [place], [address], [facility] 2 10:44:21 Otalgia of right ear 9400175976 Active 2021 KARISHMA GAGE [address] [place], [address], [facility] 2 10:11:09 Skin lesion 57203435 Active 2021 KARISHMA GAGE [address] [place], [address], [facility] 2 10:15:03 Constipat ion 53421545 Active 2021 KARISHMA GAGE [address] [place] [address], [address], [facility] 2 10:19:17 Hyperlipi demia 24510487 Active 2022 KARISHMA GAGE [address] [place] [address], [address], [facility] 3 11:58:15 Eczema 00074059 Active 2022 KARISHMA GAGE [address] [place] [address], [address], [facility] 3 14:26:11 Seborrhei c dermatiti s of scalp 561623104 Active 2022 KARISHMA GAGE [address] [place] [address], [address], [facility] 3 09:10:14 Memory impairmen t 227929133 Active 2023 KARISHMA GAGE [address] [place] [address], [address], [facility] 4 13:45:49 Raynaud's phenomeno n 037893796 Active 2023 KARISHMA GAGE [address] [place] [address], [address], [facility] 4 13:46:29 Bilateral carpal tunnel syndrome 524166311409 93452 Active 2023 KARISHMA GAGE [address] [place] [address], [address], [facility] 5 10:06:24 Osteoarth ritis of joint of hand 58522828 Active 2023 KARISHMA GAGE [address] [place] [address], [address], [facility] 4 10:51:35 Varicose veins of bilateral lower limbs 886491594181 08748 Active 2023 KARISHMA GAGE [address] [place] [address], [address], [facility] 4 10:51:49 Bilateral spider veins of lower limbs 299935878956 69929 Active 2023 KARISHMA GAGE [address] [place], [address], [facility] 4 10:51:58 Osteoarth ritis of joint of hand 65957845 Active 2023 KARISHMA GAGE [address] [place], [address], [facility] 4 10:52:10 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 KARISHMA GAGE [address] [place] [address], [address], [facility] 4 10:05:32 Seborrhei c keratosis 426395640 Active 2024 KARISHMA GAGE [address] [place] [address], [address], [facility] 5 09:33:15 Vascular dementia 519939695 Active 2024 KARISHMA GAGE [address] [place] [address], [address], [facility] 5 10:00:38 Bilateral inflammat ion of hands Active 2024 KARISHMA GAGE [address] [place], [address], [facility] 5 10:06:54 Ganglion of hand 003494983 Active 2024 KARISHMA GAGE [address] [place], [address], [facility] 5 10:07:03 Thromboph lebitis of superfici al vein of right lower limb 915562266627 08612 Active 2024 KARISHMA GAGE [address] [place], [address], [facility] 5 14:26:21 Pain of hip region 67500496 Active 2024 KARISHMA GAGE [address] [place], [address], [facility] 13:49:55 Problem Notes None recorded. Procedures Surgical History Date Name Laterality Status Provider Name and Address Organization Details Recorded Time 07/28/19 22 Cerumen Removal completed KARISHMA GAGE [address] [place], [address], [facility] 07/28/2021 09:39:06 06/19/19 08 Thyroid Surgery completed Luann Silver NP, S [address] [place] [address], [address], [facility] 03/06/2018 13:59:10 Partial Hysterectomy completed Luann Silver NP, S [address] [place] [address], [address], [facility] 03/06/2018 13:58:37 Imaging Results None [...] height Body mass index (BMI) Body weight Heart rate Oxygen saturation Oxygen saturation in Arterial blood by Pulse oximetry Systolic And Diastolic Provider Name and Address Organization Details Last Updated DateTime 5 170.18 cm 24.3 kg/m2 12014.8 2 g 79 /min 97 % 97 % 108/68 mm[Hg] Erin Delcid [facility] 5 09:22:00 Date Recorded Body height Body mass index (BMI) Body weight Heart rate Oxygen saturation Oxygen saturation in Arterial blood by Pulse oximetry Systolic And Diastolic Provider Name and Address Organization Details Last Updated DateTime 5 170.18 cm 26 kg/m2 18704.6 9 g 76 /min 95 % 95 % 118/78 mm[Hg] Erin Son [facility] 5 09:44:04 Date Recorded Body height Body mass index (BMI) Body weight Heart rate Oxygen saturation Oxygen saturation in Arterial blood by Pulse oximetry Systolic And Diastolic Provider Name and Address Organization Details Last Updated DateTime 5 170.18 cm 26 kg/m2 21027.3 3 g 74 /min 98 % 98 % 124/74 mm[Hg] Susanna Parikhmond [facility] 5 14:15:06 Date Recorded Body height Body mass index (BMI) Body weight Oxygen saturation Oxygen saturation in Arterial blood by Pulse oximetry Heart rate Systolic And Diastolic Provider Name and Address Organization Details Last Updated DateTime 5 170.18 cm 25.7 kg/m2 51166.1 5 g 96 % 96 % 70 /min 134/70 mm[Hg] Dee Naik [facility] 5 13:42:13 Social History Question [...] mcg/0.3 mL dose 1 completed KARISHMA GAGE [address] [place] [address], [address], [facility] 06/03/2021 18:21:34 Influenza, split virus, quadrivalent, preservative 1 completed KARISHMA GAGE [address] [place], [address], [facility] 07/28/2021 09:13:49 Influenza, split virus, quadrivalent, preservative 9 completed Not Available [facility] 07/06/2019 02:46:30 influenza, unspecified formulation 4 completed Erin aldana [facility] 03/15/2024 08:52:29 Influenza, split virus, quadrivalent, preservative 8 completed Not Available [facility] 07/06/2019 02:46:31 COVID-19, mRNA, LNP-S, PF, 30 mcg/0.3 mL dose 1 completed Dee aldana [facility] 11/24/2020 09:40:46 COVID-19, mRNA, LNP-S, PF, 30 mcg/0.3 mL dose 1 completed Dee aldana [facility] 11/24/2020 09:40:54 Past Encounters Encounter ID Performer Location Encounter Start Date Encounter Closed Date Diagnosis/Indication Diagnosis SNOMED-CT Code Diagnosis ICD10 Code Diagnosis IMO Codes Diagnosis Note [id number] Henrique Donohue [address] [address] 12/08/2017 11:00:10 12/08/2017 14:06:16 Streptococcal infectious disease 78965199 A49.1 Hypercholesterolemia 136 94422 E78.00 Impaired f asting glycemia 312344142 R73.01 Cough 84383351 R05 call if no better [id number] Henrique Donohue [facility] [address] [address] 03/07/2018 09:47:37 03/07/2018 12:38:51 Hypercholesterolemia 44961255 E78.00 Psoriasis 4106726 L40.9 Edema of l ower extremity 750458781 R60.0 call if worsens Screening procedure 2013 5006 Z13.9 Gastric reflux 367242848 K21.9 Pain in right knee 95232 74436 04359 M25.561 pt. defers X-ray, ?OA [id number] Henrique Donohue [facility] [address] [facility] [address] 04/02/2018 10:32:09 04/02/2018 16:45:01 Administration of influenza vaccine 71216565 Z23 [id number] Henrique Donohue [facility] Medicine [address] [facility], [place] [address] 05/08/2018 09:30:49 05/08/2018 16:41:01 Acute sciatica 748763470 M54.32 [id number] Henrique Donohue [facility] Medicine [address] [facility] [address] 10/08/2018 13:45:03 10/08/2018 14:31:50 Infection of skin and/or subcutaneous tissue 55756361 L08.9 [id number] Henrique Donohue [facility] Medicine [address] [facility] [address] 01/15/2019 14:46:47 01/15/2019 15:41:23 Hypercholesterolemia 07243373 E78.00 Gastric reflux 490113147 K21.9 Psoriasis 3619733 L40.9 Lateral epicondylitis 20 9345420 M77.11 Vertigo 437712432 R42 Skin lesion 52887128 L98 .9 [id number] Henrique Donohue [facility] Medicine [address] [facility], [place] [address] 04/08/2019 13:52:39 04/09/2019 10:49:22 Administration of influenza vaccine 58132157 Z23 [id number] Henrique Donohue [facility] Medicine [address] [facility] [address] 12/30/2019 09:37:02 12/30/2019 10:39:26 Gastric reflux 628589775 K21.9 only one or two episodes since stopping ranitidine the patient does now think after speaking with her it might be the chocolate and oranges she eats that are causing it Psoriasis 9873052 L40.9 stable on medication Hypercholesterolemia 136 60400 E78.00 needs refill [id number] Henrique Donohue [facility] Medicine [address] [facility] [address] 12/01/2020 09:36:38 12/01/2020 10:38:00 Hypercholesterolemia 09005810 E78.00 needs fu BW Psoriasis 8387674 L40.9 stable on medication Memory impairment 271956 006 R41.3 will to work up hold on the imaging at this time [id number] Henrique Donohue [facility] Medicine [address] [facility] [place] [address] 07/28/2021 09:05:01 07/28/2021 10:46:01 Vertigo 250630255 R42 needs refill Hypercholesterolemia 136 69660 E78.2 needs fu BW Seborrheic dermatitis of scalp 925280580 L21.0 needs refill Varicose v eins of lower extremity with inflammation 87505440 I83.11 fu with US Impacted c erumen of bilateral ears 4940576867 231444 H61.23 start tomorrow [id number] Henrique Donohue [facility] Medicine [address] [facility] [address] 08/20/2021 09:48:30 08/20/2021 10:41:27 Peripheral venous insufficiency 96830908 I87.2 will fu with vascular surgeon Dysfunctio n of right eustachian tube 7830977822 091067 H68.021 will trial course of steriods and sudafed [id number] Henrique Donohue [facility] Medicine [address] [facility], [place] [address] 09/13/2021 08:51:12 09/13/2021 11:24:35 Otalgia 48797587 H92.01 suggested ENTwill hold on that until she sees vasculargi venkat suggestion to start lipo-flava noid since other medication have not worked thus farcould try trimatrene -HTCZ however she already had low blood pressure, don't want to drop it Gastroesop hageal reflux disease 933667113 K21.9 diet suggesteds tart on PPI Diffuse sp asm of esophagus 10258259 K22.4 told to start on PPI if needed we add dicylomine as welltold to call if no change in symptoms [id number] Henrique Donohue [facility] Medicine [address] [facility] [place] [address] 10/27/2021 16:04:29 10/29/2021 10:20:31 Pain of right lower leg 6838352317 91183 M79.661 most likely for below diagnosisa lso could be some component of radiculopa thy from hip or backwill fu with XRs if pt decides to do so Venous ins ufficiency of lower limb 020831694 I87.2 has fu with vasular in December Pain of ri ght hip joint 2773108290 47696 M25.551 will fu with me on monday [id number] Henrique Donohue [facility] Medicine [address] [facility] [address] 03/25/2022 09:53:43 03/25/2022 10:58:43 Otalgia of right ear 5245814870 H92.01 will fu with ENT referral for continuing ear pain Skin lesion 45294819 L98 .9 will fu with dermatolog y Constipation 75521770 K5 9.09 will fu with laxative and stool softener to make her regular [id number] Henrique Donohue [facility] Medicine [address] [facility] [address] 11/20/2023 13:22:14 11/20/2023 14:20:13 Memory impairment 799669449 R41.3 will to work up hold on the imaging at this time Raynaud's phenomenon 266 318957 I73.00 agreed to lab work to start with the MRI and carotid given symptomato logy Bilateral carpal tunnel syndrome 8843161405 9607324 G56.03 will give hands outsdeclin ed OT or ortho referral [id number] Henrique Donohue [facility] Medicine [address] [facility] [place] [address] 01/30/2024 10:24:02 01/30/2024 11:30:59 Depression screening 793850474 Z13.31 SCREENING NEGATIVE Osteoarthr itis of joint of hand 73465472 M19.041 given options for OTC treatments Bilateral carpal tunnel syndrome 5115414360 3494500 G56.03 will give hands outsdeclin ed OT or ortho referralco nt with braces Varicose v eins of bilateral lower limbs 3593459971 7666268 I83.93 stablecont with compressio n stockings Bilateral spider veins of lower limbs 1078392833 2888249 I78.1 stable cont with compressio n stockings At low risk for fall 439 780874 Z91.81 25 [id number] Henrique Donohue [facility] Medicine [address] [facility] [address] 02/13/2024 08:46:01 02/13/2024 14:02:59 Mesial temporal lobe sclerosis 318014526 G93.81 ? is possible diagnosis but radiologis t could not say for sure this is what it ispt aware, declines interventi on, will monitor symptomsdo es not want any meds Memory impairment 177236 006 R41.3 stable, no sig changes from baseline [id number] Henrique Donohue [facility] Medicine [address] [facility] [address] [facility] [facility] [address] 07/16/2024 09:14:48 07/16/2024 10:19:37 Bilateral carpal tunnel syndrome 1933238751 6042544 G56.03 declined OT or ortho referralco nt with braces Osteoarthr itis of joint of hand 14521894 M19.041 start on diclofenac lotion, can use meloxicam PRN for bad days Seborrheic keratosis 394 196516 L82.1 will monitor, declines Seborrheic dermatitis of scalp 906585434 L21.0 needs refill, works great Vertigo 484264421 R42 needs refill [id number] Henrique Donohue [facility] Medicine [address] [facility] [address] 10/25/2024 09:35:03 10/25/2024 10:23:10 Depression screening 823546437 Z13.31 SCREENING NEGATIVE Vascular dementia 756313 004 F01.B0 7124183536 pt awarediscu ssed medswill think about it Bilateral carpal tunnel syndrome 7690539676 3378367 G56.03 881676 declined OT or ortho referralco nt with boone think about it Bilateral inflammation of hands 7266154101 37778 M19.041 M19.042 00608405 will think about the ortho referral Ganglion of hand 3459922 07 M67.449 2881564297 L hand [id number] Henrique Donohue [facility] Medicine [address] [facility] [place] [address] 04/08/2025 14:06:01 04/09/2025 09:39:24 Thrombophlebitis of superficial vein of right lower limb 5123208865 8770048 I80.01 37855143 [id number] Henrique Donohue [facility] Medicine [address] [facility], [place] [address] 04/30/2025 13:29:00 04/30/2025 15:35:46 Depression screening 167202208 Z13.31 SCREENING NEGATIVE Pain of hip region 81894 002 M25.552 774845 Ganglion of hand 3098543 07 M67.449 4931482249 L handresolv ed Thrombophl ebitis of superficial vein of right lower limb 9981332266 2871635 I80.01 97708944 Health Concerns Section Related Observation LastModified by Organization Detai ls LastModified Time None Recorded Concern Status LastModified by Organization Details LastModified Time None Recorded Advance Directives Directive None Recorded Payers Insurance Date Sequence Insurance Name Policy Number Policy Nur Covered Member ID Nur Member ID Guarantor Name 04/08/2025 1 [facility] [id number] 01 Alyssa Stacy [id number] Alyssa Stacy 04/29/2025 2 [facility] [id number] Alyssa Stacy [id number] Alyssa Stacy 04/29/2025 1 MEDICARE B-MD: [facility] [employer] Alyssa Stacy [id number] Alyssa Stacy Notes Date Note Type Note Provider Name and Address Organization Details Recorded Time 02/13/20 24 text/htm l ROS as noted in the HPI f/u MRI The patient is participating in this appointment via telemedicine communication with a phone call/video calling service ([employer])The patient consents to use of these platforms in place of an in-person appointment due to either sick symptoms the patient is presenting with or current office closure due to COVID exposure in order to keep our office staff and patients safe discussed results, noted atrophy in the hippocampus, temporal area thom, could be suggestive of a type of mesial sclerosis, though not diagnosed completely on MRI, possibility but not guaranteedreviewed results with patient, given that this can also lead to possible seizures or worsening memory discussed options for patient ie neuro f/u for consult about findings the patient has had these symptoms for a few years know, no changes significant enough for the patient to have it effect her day to day function pt declined intervention at this time as she has been stable and not currently interested in having more work up downtold her what to be aware of and what to monitor for and she will call if she needs anything pt verbalized understandingotherwise she seems okay with the diagnosis, not upset and will cont as she is nowhas no other questions at this time KARISHMA GAGE [address] [place] [address], [address], [facility] 02/13/2024 10:06:55 07/16/19 25 text/htm l ROS as noted in the HPI c/o hand pain the patient reports bilateral hand painshe is right hand dominantthe patient reports that she has tried some OC topicals like capsaicin that didn't workdeclines orthopedic intervention, does not want to see a specialist hx of carpal tunnel that we know of, pain is worse in the morning and she is 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, bilaterally, recommended trying a topical anti-inflammatory to use QD and an oral tablet (meloxicam) when she's having a lot of painalso recommended trying CBD lotion as well patient will try these and report back if she is feeling better needs refills, stable on medication KARISHMA GAGE [address] [place], [address], [facility] 07/16/2024 09:41:10 10/26/19 25 text/htm l ROS as noted in the HPI f/u OA hands dementia: still continues to be an issues, mild to moderate, only her short term memory seems to be the most effectivediscussed options for medications to slow down the process and see if it helps ptwill think about it OA: recommended hand surgeon againhaving carpal tunnel syndrome thom worseningis using the hand braces still ganglion cyst: L hand hand, middle finger, has two nowrecommended hand surgeon for this time the patient is hesitant about the specialist, will give me a call about it after she talks to her KARISHMA GAGE [address] [place], [address], [facility] 10/25/2024 10:08:37 04/08/20 25 text/htm l ROS as noted in the HPI c/o thrombophlebitis of the R LE, medial side the patient is here for an issue with thrombophlebitis (superficial) has hx of ithas varicose veins historically doesn't want the procedure to fix them, declined at last appt and with the vein specialist patient will be started on abx and medrolrecommended starting ASA to prevent clotting patient will also ice at home will call to update me about progress KARISHMA GAGE [address] [place], [address], [facility] 04/08/2025 14:36:24 04/30/20 text/htm l ROS as noted in the HPI c/o [...] possibility of hip fx KARISHMA GAGE [address] [place], [address], [facility] 04/30/2025 15:22:11 OBGyn Episode No OBEpisode recorded.
--- OUTSIDE RECORDS SUMMARY | 2025-05-01 07:20 | XMS_ITS | Patient Health Record ---
Author Organization [facility] Address [address] [place] [id number] Care Team Providers Care Loader Demolder Name Role Phone Marcelo Romano Unavailable [phone] Reason For Referral No Information Plan Of Treatment No Information
--- OUTSIDE RECORDS SUMMARY | 2025-05-01 07:20 | XMS_ITS | Encounter Summary ---
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) Social History Tobacco Use Types Packs/Day Years Used Date Smoking Tobacco: Never Assessed Comments Unknown Sex and Gender Information Value Date Recorded Sex Assigned at Not on file Legal Sex Unknown 07/28/2021 9:55 AM EST Gender Identity Not on file Sexual Orientation Not on file documented as of this encounter Plan of Treatment Not on file documented as of this encounter Visit Diagnoses Diagnosis Varicose veins of right lower extremity with inflammation- Primary documented in this encounter Care Teams Spikemaking Supervisor Relationship Specialty Start Date End Date Blaire Odonnell PA [address] [place] [address] PCP - General 07/28/21 documented as of this encounter Additional Source Comments The information contained in this document represents components of the legal health record. It is not the complete legal health record.[facility]
== END 2025-05-01 07:17 | disposition home or self-care (01) ==
LOC: HO.XRAY 07:16
PROVIDERS: PCP Internal Medicine; Visit Provider Physician Assistant
DX: M25.552 Pain in left hip (principal)
CPT/HCPCS: 73521

== ENCOUNTER → 2025-05-01 07:21 | Outpatient (BNV) | payer MEDICARE, OTHER, SELFPAY | PROVIDERS: PCP Internal Medicine; Visit Provider Radiology Diagnostic Ultrasound | DX: M16.0 Bilateral primary osteoarthritis of hip (principal) | CPT/HCPCS: 73521 ==